=== PATIENT | female | born 1945 | race Caucasian/White ===

== ENCOUNTER 2020-12-04 10:19 | Emergency (ER) | payer MEDICARE, OTHER ==
[~2020-12-04] VITALS: Ht 167.6 cm; Wt 82.9 kg
[2020-12-04] MEDS ORDERED: SUCCINYLCHOLINE 200 MG/10 ML VIAL. ONE (10:33)
[2020-12-04] MEDS ORDERED: IV NORMAL SALINE 1,000ML 1,000 ML IV SCH (11:00)
--- NOTE | 2020-12-04 11:04 | PHYS DOC ---
Past History Past Medical History: Diabetes Adult General Chief Complaint Chief Complaint: ALTERED MENTAL STATUS HPI HPI Patient is a 75-year-old female who presents via EMS for altered mental status. 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 reported patient had not been feeling well preceding 48 hours. Reports patient had pump malfunction yesterday evening and when awaking today was extremely weak and lethargic. Initial report was that patient fell out of bed but after confirming history with , patient tried to get out of bed and rolled suffering a less than 2 foot fall to the ground hitting her head. There was no loss of consciousness but due to size of patient and mental status, had difficulty getting her back up and so he called EMS. On arrival to scene, patient was alert but not oriented to person place or time. Her airway was not protected, [id number] glucose was read as "high"and she was rushed to our ER for evaluation. Review of Systems Review of Systems ROS unobtainable due to mentation of the patient Current Medications Current Medications Current Medications Medications (Trade) Dose Ordered Sig/Lelia Start Time Stop Time Status Last Admin Dose Admin Succinylcholine Chloride (Anectine) 200 mg STK-MED ONCE 12/04/20 10:33 12/04/20 10:33 DC Physical Exam Physical Exam A: Nonverbal, airway is nonpatent nor protected B: Bilateral breath sounds present with decreased respirations C: 2+ carotid and femoral pulses b/l D: GCS 6 (E4, V1, M1). E: Patients clothing removed. External insulin pump removed from patient General: Minimally responsive, grossly dehydrated in appearance without any external deformities or signs of trauma Skin: Warm, dry. Normal for ethnicity. HEENT: Atraumatic. PERRLA. Dry mucous membranes. No facial deformity. Neck: Trachea midline. No palpable C-spine abnormalities Respiratory: Decreased work of breathing and rate. CTAB w/o w/r/r. No tachypnea. Cardiovascular: Regular rate and rhythm. Normal peripheral perfusion. No edema. Chest: B/l clavicles intact. No ecchymosis. No deformity. Abdomen: Soft. Non tender. No distension. : Normal external genitalia. Back: No midline T or L-spine TTP. No ecchymosis. Musculoskeletal: No swelling or deformity. Neuro: Alert but not oriented to person place or time, no focal neuro deficits, negative babinski bilaterally Psych: Unable to assess EKG EKG EKG ordered and interpreted by myself at 1134 hrs. as sinus rhythm at 83 bpm, prolonged QTC at 460 otherwise unremarkable intervals, left axis deviation, T wave inversions noted in leads aVR, no STEMI, no prior EKG to compare to Radiology/Procedures Radiology/Procedures PROCEDURE: PORTABLE CHEST 1V AP chest. HISTORY: Short of breath, intubated AP view was taken of the chest. There is an endotracheal tube in good position at the level aortic arch. Patient's taken a poor inspiration. Heart is normal in size. There is no pleural effusion. There are no confluent infiltrates. IMPRESSION: 1. Endotracheal tube appears in good position. 2. No acute infiltrates. Electronically signed by: Edwin Chowdary MD (12/04/2020 10:59 AM) [id number] ////////////////////////////////////////////// PROCEDURE: CT HEAD AND CERVICAL SPINE WO CT HEAD AND C-SPINE WO Date: 12/04/2020 11:11 AM Clinical Indication: unresponsive Comparison: None. Technique: 5 mm axial tomographic images were obtained of the head without contrast. These were viewed on brain and bone windows. Noncontrast CT of the cervical spine was performed. Sagittal and coronal reformats were performed and evaluated. One or more of the following dose reduction techniques were utilized: Automated exposure control (AEC), Adjustment of mA and/or kV according to patient size, Use of iterative reconstruction technique such as ASiR, CT scan done according to ALARA and image gently/image wisely HEAD FINDINGS: Mild generalized cerebral and cerebellar volume loss. Mild nonspecific periventricular hypoattenuation, most commonly seen with chronic small vessel ischemic disease. No intra- or extra-axial mass or fluid collection. No acute hemorrhage. The ventricles are normal in size, shape, and morphology. The downing-white matter junction is normal. The basilar cisterns are patent. The visualized paranasal sinuses are normal. The visualized portions of the orbits and globes are normal. The mastoid air cells are clear. No aggressive osseous lesion or fracture. CERVICAL SPINE FINDINGS: The cervical spine is normally aligned. No acute fracture. No aggressive lytic or blastic osseous lesions. Mild multilevel degenerative disc space height loss. Multilevel mild spinal canal stenosis secondary to disc protrusions and marginal osteophytes. Multilevel mild neuroforaminal narrowing secondary to uncovertebral arthrosis. Multilevel mild facet arthrosis. The thyroid gland is normal. No cervical lymphadenopathy. Bilateral carotid atherosclerosis. The visualized aerodigestive tract is normal. The visualized portions of the lungs are clear. IMPRESSION: 1. No acute intracranial process. 2. No acute cervical spine fracture. Electronically signed by: Oilver Orozco MD (12/04/2020 11:36 AM) [id number] /////////////////////////// PROCEDURE: CHEST AP ONLY XR CHEST 1V 1:14 PM CLINICAL INDICATIONS: Reason: RIGHT IJ CENTRAL LINE PLACEMENT COMPARISON: December 04, 2020 performed at 10:44 AM FINDINGS/ IMPRESSION: ET tube tip is located 4.5 cm above the level of jeff. Right IJ central line is in place and tip is seen within the upper superior vena cava. No pneumothorax or pleural effusion or acute lung infiltrate is seen. Electronically signed by: Anuel Taylor MD (12/04/2020 1:28 PM) [id number] Heart Score C/O Chest Pain: N/A Risk Factors: Risk Factors: DM, Current or recent (<one month) smoker, HTN, HLP, family history of CAD, obesity. Risk Scores: Risk Factors: DM, Current or recent (<one month) smoker, HTN, HLP, family history of CAD, obesity. Course & Med Decision Making Course & Med Decision Making Hypothermic, hypotensive and hypoxic patient on arrival with a non-protected airway IV access obtained, supplemental O2 via non-breather did not improve patient status so patient was emergently intubated without complication X2 peripheral IVs intact and aggressive fluid resuscitative ensued given presumed diagnosis of DKA vs HHS CT head and neck obtained for suspect fall but later told by she did not hit head and lowered self to groudn without LOC Rt IJ CVL obtained and IV Insulin drip started for dx DKA, patient actively rewarmed with blankets. ED workup concerning for DKA and hypothermia. Also concern for infection of unknown source at present Patient stabilized and decision made to transfer to [facility] icu. Hospitalist contacted and case discussed, Dr. Odom accepted patient under his care. at bedside and confirmed preceding HPI obtained by EMS. Updated on plan of care for transfer and admission and he was amenable. All questions and conc erns addressed prior to ED transport to [facility] for admission This patient required critical care. Due to the fact that the patient required a significant amount of one on one physician patient contact time, ordering and review of studies, arranging urgent treatment with development of a management plan, evaluation of patients response to treatment with frequent reassessments, and discussions with other providers this patient required critical care time of 72 mins. Critical care time was indicated due to the inherent instability and/or potential for instability in this patient. The critical care time that is allocated to this patient is above and beyond any time spent on any other billable procedures performed on this patient. Dragon Disclaimer Dragon Disclaimer This electronic medical record was generated, in whole or in part, using a voice recognition dictation system. Central Line Central Line : Central Line Lumen: triple Central Line Procedure: sterile drapes applied, sterile dressing applied Central Line Postion: internal jugular (R) Anesthesia: Lidocaine cc's of anesthesia: 3 Complications: none Central Line Post Position: sutured, good blood return, position confirmed w/ CXR Progress verbal consent obtained from after discussing risks vs benefits at length Intubation Intubation : Intubation Method: orotracheal Tube Size (cm): 7.5 Medications: Succinylcholine (with etomidate (see nursing notes)) Breath Sounds after Intubation: equal Intubation Complications: no complications Post Intubation Xray: Yes Progress 1st attempt success using mac 3 blade. Emergent in nature, nobody available for consent, med necessity Departure Departure: Impression: Primary Impression: DKA (diabetic ketoacidosis) Additional Impressions: Hypothermia Acute respiratory failure with hypoxia Disposition: 02 DC/TRF OTHER SHORT TERM HOS ([facility] Admitting Physician: Tamiko Odom Condition: GUARDED Referrals: COLLIN COVINGTON MD (PCP) Problem Qualifiers JUNIE JONES DO Dec 04, 2020 11:04
[2020-12-04] MEDS ORDERED: IV NORMAL SALINE 1,000ML 1,000 ML IV ONE (11:15)
[2020-12-04 11:18] LABS: BASO # 0.2 x10^3/uL (0.0-0.2); BASO % 1 % (0-3); EOS % 0 % (0-3); HEMATOCRIT 56.8 % (36.0-47.0); HEMOGLOBIN 16.5 g/dL (12.0-15.5); LYMPH # 0.9 x10^3/uL (1.0-4.8); LYMPH % 4 % (24-48); MEAN CORPUSCULAR HEMOGLOBIN 31 pg (25-35); MEAN CORPUSCULAR HGB CONC 29 g/dL (31-37); MEAN CORPUSCULAR VOLUME 106 fL (79-100); MONO # 1.4 x10^3/uL (0.0-1.1); MONO % 7 % (0-9); NEUT # 18.3 x10^3uL (1.8-7.7); NEUT % 88 % (31-73); PLATELET COUNT 453 x10^3/uL (140-400); RED BLOOD COUNT 5.35 x10^6/uL (3.50-5.40); RED CELL DISTRIBUTION WIDTH 16.1 % (11.5-14.5); WHITE BLOOD COUNT 20.9 x10^3/uL (4.0-11.0)
[2020-12-04 11:23] LABS: SALIC 5.9 mg/dL (2.8-20.0)
[2020-12-04 11:24] LABS: ACETAMIN < 2 mcg/mL (10-30)
[2020-12-04] MEDS ORDERED: PROPOFOL 100 ML IV PRN (11:30)
[2020-12-04] MEDS ORDERED: INSULIN REGULAR 100 UNIT/ML 3ML VIAL. IV ONE (11:30)
[2020-12-04 11:33] LABS: ALBUMIN 3.6 g/dL (3.4-5.0); CALCIUM 10.3 mg/dL (8.5-10.1); CREATININE 2.8 mg/dL (0.6-1.0); GFR 16.5; POTASSIUM 5.7 mmol/L (3.5-5.1); TOTAL BILIRUBIN 0.6 mg/dL (0.2-1.0); TOTAL PROTEIN 7.2 g/dL (6.4-8.2)
--- NOTE | 2020-12-04 11:38 | RAD ---
CT HEAD AND C-SPINE WO Date: 12/04/2020 11:11 AM Clinical Indication: unresponsive Comparison: None. Technique: 5 mm axial tomographic images were obtained of the head without contrast. These were view ed on brain and bone windows. Noncontrast CT of the cervical spine was performed. Sagittal and monahan l reformats were performed and evaluated. One or more of the following dose reduction techniques were utilized: Automated exposure control (AEC), Adjustment of mA and/or kV according to patient size, Us e of iterative reconstruction technique such as ASiR, CT scan done according to ALARA and image gentl y/image wisely HEAD FINDINGS: Mild generalized cerebral and cerebellar volume loss. Mild nonspecific periventricular hypoattenuatio n, most commonly seen with chronic small vessel ischemic disease. No intra- or extra-axial mass or fluid collection. No acute hemorrhage. The ventricles are normal in size, shape, and morphology. The downing-white matter junction is normal. The basilar cisterns are paten t. The visualized paranasal sinuses are normal. The visualized portions of the orbits and globes are no rmal. The mastoid air cells are clear. No aggressive osseous lesion or fracture. CERVICAL SPINE FINDINGS: The cervical spine is normally aligned. No acute fracture. No aggressive lytic or blastic osseous les ions. Mild multilevel degenerative disc space height loss. Multilevel mild spinal canal stenosis secondary to disc protrusions and marginal osteophytes. Multilevel mild neuroforaminal narrowing secondary to u ncovertebral arthrosis. Multilevel mild facet arthrosis. The thyroid gland is normal. No cervical lymphadenopathy. Bilateral carotid atherosclerosis. The visu alized aerodigestive tract is normal. The visualized portions of the lungs are clear. IMPRESSION: 1. No acute intracranial process. 2. No acute cervical spine fracture. Electronically signed by: Oliver Orozco MD (12/04/2020 11:36 AM) [id number]
[2020-12-04 11:52] LABS: BARBITURATES NEG (NEG); BENZODIAZEPINES NEG (NEG); CANNABINOIDS NEG (NEG); COCAINE NEG (NEG); METHADONE NEG (NEG); OPIATES NEG (NEG); PHENCYCLIDINE NEG (NEG)
[2020-12-04 11:54] LABS: AMPHETAMINE/METHAMPHETAMINE NEG (NEG)
[2020-12-04] MEDS ORDERED: INSULIN REGULAR VIAL 100 UNIT in IV NORMAL SALINE 100ML 100 ML IV PRN (12:00)
[2020-12-04] MEDS ORDERED: DEXTROSE 50% 25 GM / 50ML DISP.SYRIN. IV PRN (12:00)
[2020-12-04] MEDS ORDERED: IV 1/2 NORMAL SALINE 1,000 ML IV ONE (12:00)
[2020-12-04 12:04] LABS: AMORPHOUS SEDIMENT,UR PRESENT /HPF; BACTERIA,URINE 0 /HPF (0-FEW); BILIRUBIN,URINE NEG (NEG); CLARITY,URINE HAZY; COLOR,URINE YELLOW; GLUCOSE,URINE >=1000 mg/dL (NEG); HYALINE CASTS, URINE FEW /HPF; NITRITE,URINE NEG (NEG); RBC,URINE OCC /HPF (0-2); SQUAMOUS EPITHELIAL CELL,UR MOD /LPF; UROBILINOGEN,URINE 0.2 mg/dL (0.2 mg/dL); WBC,URINE OCC /HPF (0-4); YEAST,URINE PRESENT /HPF
[2020-12-04] MEDS ORDERED: IV NORMAL SALINE 100ML 100 ML ONE (12:16)
[2020-12-04 12:19] LABS: BGAS PH 6.97 (7.35-7.45)
--- NOTE | 2020-12-04 13:31 | RAD ---
XR CHEST 1V 1:14 PM CLINICAL INDICATIONS: Reason: RIGHT IJ CENTRAL LINE PLACEMENT COMPARISON: December 04, 2020 performed at 10:44 AM FINDINGS/ IMPRESSION: ET tube tip is located 4.5 cm above the level of jeff. Right IJ central line is in plac e and tip is seen within the upper superior vena cava. No pneumothorax or pleural effusion or acute l ember infiltrate is seen. Electronically signed by: Anuel Taylor MD (12/04/2020 1:28 PM) [id number]
[2020-12-04 13:45] VITALS: BP 138/91
[2020-12-04 14:03] LABS: % BANDS 4 % (0-9); % EOS 1 % (0-5); % LYMPHS 4 % (24-48); % METAS 1 % (0-0); % MONOS 5 % (0-10); % MYELOS 2 % (0-0); % SEGS 83 % (35-66)
[2020-12-04 14:04] LABS: PLT ESTIMATE ADEQUATE (ADEQUATE)
--- NOTE | 2020-12-04 14:55 | EKG ---
[facility] ED 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
[2020-12-04] MEDS ORDERED: ETOMIDATE 40 MG/20 ML VIAL. ONE (16:00)
== END 2020-12-04 14:03 | disposition short-term general hospital (02) ==
LOC: ER 10:19
DX: T68.XXXA Hypothermia, initial encounter (principal); J96.01 Acute respiratory failure with hypoxia; E11.10 Type 2 diabetes mellitus with ketoacidosis without coma; W06.XXXA Fall from bed, initial encounter; Y93.89 Activity, other specified; Y92.89 Other specified places as the place of occurrence of the external cause; Y99.8 Other external cause status
CPT/HCPCS: 31500; 36415; 36556; 36600; 51702; 70450; 71045; 72125; 80053; 80307; 80329; 81001; 82010; 82550; 82803; 83605; 84484; 85007; 85025; 87040; 93005; 96365; 96366; 96376; 99291; J1815; J2704; J7030; 94002; G0480

== ENCOUNTER 2021-01-28 19:30 | Emergency (ER) | payer MEDICARE, OTHER ==
[~2021-01-28] VITALS: Ht 167.6 cm; Wt 86.4 kg
[2021-01-28] MEDS ORDERED: RACEPINEPHRINE 2.25% 0.5 ML NEBU. ONE (19:46)
--- NOTE | 2021-01-28 19:57 | RAD ---
Exam: Chest one view INDICATION: Shortness of breath TECHNIQUE: Frontal view of the chest Comparisons: 12/04/2020 FINDINGS: The cardiomediastinal silhouette and pulmonary vessels are within normal limits. The lung and pleural spaces are clear. IMPRESSION: No acute cardiopulmonary process. Electronically signed by: Daiana Joseph MD (01/28/2021 7:55 PM) ALVIN
[2021-01-28] MEDS ORDERED: IPRATRPIUM/ALBUTEROL 0.5/2.5MG 3 ML NEBU. NEB ONE (20:00)
[2021-01-28] MEDS ORDERED: diphenhydrAMINE 50 MG/ML VIAL IVP ONE (20:00)
[2021-01-28] MEDS ORDERED: methylPREDNISolone SOD SUCC PF 125 MG/2 ML VIAL. IV ONE (20:00)
[2021-01-28] MEDS ORDERED: ONDANSETRON PF 4 MG/2 ML VIAL. IVP ONE (20:00)
--- NOTE | 2021-01-28 20:10 | PHYS DOC ---
Past History Past Medical History: Diabetes Past Surgical History: Cancer Surgery, Cholecystectomy Alcohol Use: None General Adult EDM: Chief Complaint: SHORTNESS OF BREATH HPI: HPI: 75-year-old female presents with shortness of breath. The patient states that she was sitting on her couch not doing much of anything when she started to feel short of breath. She started to have coughing that increased in intensity. She feels like she is wheezing and having a difficult time breathing. She has no idea why this is occurring. She has no history of asthma or COPD. She was not eating or drinking anything. She denies fever or chills. Denies chest pain. Review of Systems: Review of Systems: Constitutional: Denies fever or chills Eyes: Denies change in visual acuity HENT: Denies nasal congestion or sore throat Respiratory: Cough with shortness of breath Cardiovascular: Denies chest pain or edema GI: Denies abdominal pain, nausea, vomiting, bloody stools or diarrhea : Denies dysuria Musculoskeletal: Denies back pain or joint pain Integument: Denies rash Neurologic: Denies headache, focal weakness or sensory changes Endocrine: Denies polyuria or polydipsia Lymphatic: Denies swollen glands Psychiatric: Denies depression or anxiety Current Medications: Current Meds: Current Medications Medications (Trade) Dose Ordered Sig/Lelia Start Time Stop Time Status Last Admin Dose Admin Albuterol/ Ipratropium (Duoneb) 3 ml 1X ONCE 01/28/21 20:00 01/28/21 20:01 DC Diphenhydramine HCl (Benadryl) 25 mg 1X ONCE 01/28/21 20:00 01/28/21 20:01 DC Epinephrine (S2 Racepinephrine) 0.5 ml STK-MED ONCE 01/28/21 19:46 01/28/21 19:47 DC Methylprednisolone Sodium Succinate (SOLU-Medrol 125MG VIAL) 125 mg 1X ONCE 01/28/21 20:00 01/28/21 20:01 DC Ondansetron HCl (Zofran) 4 mg 1X ONCE 01/28/21 20:00 01/28/21 20:01 DC Allergies: Allergies: Allergies Coded Allergies Type Severity Reaction Last Updated Verified No Known Drug Allergies 12/04/20 No Physical Exam: PE: Constitutional: Well developed, well nourished, moderate acute distress. [] HENT: Normocephalic, atraumatic, bilateral external ears normal, oropharynx moist, no oral exudates, nose normal. [] Eyes: PERRLA, EOMI, conjunctiva normal, no discharge. [] Neck: Normal range of motion, no tenderness, supple, no stridor. [] Cardiovascular: Heart rate 130, regular rhythm, no murmur [] Lungs & Thorax: Bilateral breath sounds with diffuse expiratory wheezing. [] Abdomen: Bowel sounds normal, soft, no tenderness, no masses, no pulsatile masses. [] Skin: Warm, dry, no erythema, no rash. [] Back: No tenderness, no CVA tenderness. [] Extremities: No tenderness, no cyanosis, no clubbing, ROM intact, no edema. [] Neurologic: Alert and oriented X 3, normal motor function, normal sensory function, no focal deficits noted. [] Psychologic: Affect as expected, judgement normal, mood concerned. [] EKG: EKG: Sinus tachycardia, rate 117, leftward axis, no ST elevation or depression. [] Radiology/Procedures: Radiology/Procedures: [] Impressions: Exam: CT neck without contrast INDICATION: Shortness of breath, restricted airway TECHNIQUE: Sequential axial images through the neck obtained without IV contra st. Sagittal and coronal reformatted images were reconstructed from the axial data and reviewed. Exposure: One or more of the following in the visualized dose reduction techniques were utilized for this examination: 1. Automated exposure control 2. Adjustment of the MA and/or KV according to patient size 3. Use of iterative of reconstructive technique Comparisons: 12/04/2020 FINDINGS: Visualized intracranial structures are unremarkable. Globes and orbital contents are normal. Nasopharynx, oropharynx, are unremarkable. At the hypopharynx at the level of the focal cords there is a central filling defect. The more distal larynx is unremarkable. Thyroid is not visualized. No enlarged cervical lymph nodes. Salivary glands are unremarkable. There is a 8 mm nodule in the left upper lobe. No suspicious osseous lesions or acute fractures IMPRESSION: 1. Masslike area in the hypopharynx at the level of the vocal cords measuring approximately 1.4 cm. Differential considerations include mucous plugging versus neoplasm. Direct visualization is recommended. 2. An 8 mm nodule in the left upper lobe. Dedicated chest CT is recommended to better assess. Electronically signed by: Daiana Dixon MD (01/28/2021 10:27 PM) [facility] DICTATED AND SIGNED BY: DAIANA DIXON MD DATE: 01/28/212218 CC: COLIN BROTHERS DO; COLLIN COVINGTON MD ~MTH0 0 Exam: Chest one view INDICATION: Shortness of breath TECHNIQUE: Frontal view of the chest Comparisons: 12/04/2020 FINDINGS: The cardiomediastinal silhouette and pulmonary vessels are within normal limits. The lung and pleural spaces are clear. IMPRESSION: No acute cardiopulmonary process. Electronically signed by: Daiana Dixon MD (01/28/2021 7:55 PM) [facility] DICTATED AND SIGNED BY: DAIANA DIXON MD DATE: 01/28/211953 CC: COLIN BROTHERS DO; COLLIN COVINGTON MD ~MTH0 0 Heart Score: C/O Chest Pain: No Risk Factors: Risk Factors: DM, Current or recent (<one month) smoker, HTN, HLP, family history of CAD, obesity. Risk Scores: Score 0 - 3: 2.5% MACE over next 6 weeks - Discharge Home Score 4 - 6: 20.3% MACE over next 6 weeks - Admit for Clinical Observation Score 7 - 10: 72.7% MACE over next 6 weeks - Early Invasive Strategies Course & Med Decision Making: Course & Med Decision Making Pertinent Labs and Imaging studies reviewed. (See chart for details) We have given the patient a DuoNeb treatment followed by racemic epinephrine. Her O2 saturation has been above 95%. Patient was also given 125 of Solu-Medrol and 25 of Benadryl IV. I have not currently given her any epinephrine. Her chest x-ray is negative for acute findings. Her CT of the neck shows a 1.4 cm masslike lesion which could be mucous plugging or neoplasm. We do not have ENT at this hospital or [facility]. I will ask the patient which hospital system she would like me to contact. She has requested [facility]. I spoke with Dr. Nails, ENT and he will be consulted on the patient. He advised admission to the hospitalist. Spoke with the hospitalist, and she has accepted the patient for transfer and admission. The patient will go by ambulance. 33 minutes of critical care time was spent on this patient exclusive of other billable procedures. [] Dragon Disclaimer: Dragon Disclaimer: This electronic medical record was generated, in whole or in part, using a voice recognition dictation system. Departure Departure: Impression: Primary Impression: Respiratory distress Additional Impression: Pharyngeal mass Disposition: 02 SHORT TERM HOSPITAL Condition: GUARDED Referrals: COLLIN COVINGTON MD (PCP) COLIN BROTHERS DO January 28, 2021 20:10
[2021-01-28 20:43] LABS: BASO # 0.1 x10^3/uL (0.0-0.2); BASO % 1 % (0-3); EOS # 0.4 x10^3/uL (0.0-0.7); EOS % 3 % (0-3); HEMATOCRIT 42.3 % (36.0-47.0); HEMOGLOBIN 13.8 g/dL (12.0-15.5); LYMPH # 3.5 x10^3/uL (1.0-4.8); LYMPH % 25 % (24-48); MEAN CORPUSCULAR HEMOGLOBIN 31 pg (25-35); MEAN CORPUSCULAR HGB CONC 33 g/dL (31-37); MEAN CORPUSCULAR VOLUME 95 fL (79-100); MONO # 1.2 x10^3/uL (0.0-1.1); MONO % 8 % (0-9); NEUT # 8.7 x10^3uL (1.8-7.7); NEUT % 63 % (31-73); PLATELET COUNT 359 x10^3/uL (140-400); RED BLOOD COUNT 4.46 x10^6/uL (3.50-5.40); RED CELL DISTRIBUTION WIDTH 15.1 % (11.5-14.5); WHITE BLOOD COUNT 13.8 x10^3/uL (4.0-11.0)
[2021-01-28 21:11] LABS: CALCIUM 8.8 mg/dL (8.5-10.1); GFR 54.2; POTASSIUM 3.3 mmol/L (3.5-5.1)
[2021-01-28 21:17] LABS: ALBUMIN 2.9 g/dL (3.4-5.0); ALBUMIN/GLOBULIN RATIO 0.9 (1.0-1.7); TOTAL BILIRUBIN 0.2 mg/dL (0.2-1.0); TOTAL PROTEIN 6.1 g/dL (6.4-8.2)
[2021-01-28 21:24] LABS: BILIRUBIN,URINE NEG (NEG); CLARITY,URINE HAZY; COLOR,URINE YELLOW; GLUCOSE,URINE >=1000 mg/dL (NEG); NITRITE,URINE NEG (NEG); UROBILINOGEN,URINE 0.2 mg/dL (0.2 mg/dL)
[2021-01-28 21:26] LABS: BACTERIA,URINE 0 /HPF (0-FEW); RBC,URINE 0 /HPF (0-2); SQUAMOUS EPITHELIAL CELL,UR FEW /LPF; WBC,URINE 0 /HPF (0-4)
--- NOTE | 2021-01-28 22:29 | RAD ---
Exam: CT neck without contrast INDICATION: Shortness of breath, restricted airway TECHNIQUE: Sequential axial images through the neck obtained without IV contrast. Sagittal and monahan l reformatted images were reconstructed from the axial data and reviewed. Exposure: One or more of the following in the visualized dose reduction techniques were utilized for this examination: 1. Automated exposure control 2. Adjustment of the MA and/or KV according to patient size 3. Use of iterative of reconstructive technique Comparisons: 12/04/2020 FINDINGS: Visualized intracranial structures are unremarkable. Globes and orbital contents are normal. Nasopharynx, oropharynx, are unremarkable. At the hypopharynx at the level of the focal cords there i s a central filling defect. The more distal larynx is unremarkable. Thyroid is not visualized. No enlarged cervical lymph nodes. Salivary glands are unremarkable. There is a 8 mm nodule in the left upper lobe. No suspicious osseous lesions or acute fractures IMPRESSION: 1. Masslike area in the hypopharynx at the level of the vocal cords measuring approximately 1.4 cm. Differential considerations include mucous plugging versus neoplasm. Direct visualization is recommen ded. 2. An 8 mm nodule in the left upper lobe. Dedicated chest CT is recommended to better assess. Electronically signed by: Daiana Joseph MD (01/28/2021 10:27 PM) [facility]
[2021-01-28 23:38] VITALS: BP 107/53
--- NOTE | 2021-01-29 00:03 | EKG ---
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
== END 2021-01-29 01:16 | disposition short-term general hospital (02) ==
LOC: ER 19:30
DX: R06.03 Acute respiratory distress (principal); J39.2 Other diseases of pharynx; E11.9 Type 2 diabetes mellitus without complications
CPT/HCPCS: 36415; 70490; 71045; 80053; 81001; 85025; 93005; 94640; 96374; 96375; 99285; J1200; J2405; J2930

== ENCOUNTER → 2021-04-25 | Outpatient (CLI) | payer MEDICARE, OTHER ==
--- NOTE | 2021-04-25 09:46 | RAD ---
Site ID: [id number] EXAMINATION: CT HEAD/BRAIN WO. TECHNIQUE: Noncontrast axial images of the brain were obtained with coronal and sagittal reconstructi ons. One or more of the following radiation dose reduction techniques was used: automated exposure control , adjustment of mA and/or KV according to patient size, and/or utilization of iterative reconstructio n technique. HISTORY: 75 years Female Reason: MEMORY LOSS / FINDINGS: There is no intracranial hemorrhage, edema or mass effect. The brain parenchyma demonstrat es periventricular and deep white matter hypodensities compatible with chronic microvascular ischemic changes. Size of the ventricles is appropriate. The visualized portions of the orbits and paranasal sinuses appear unremarkable. IMPRESSION: No acute process. Electronically signed by: Cristino Fernandez MD (04/25/2021 9:44 AM) [id number]
== END ==
LOC: CT 09:18
PROVIDERS: ATTEND Psychiatry & Neurology Neurology
DX: R41.3 Other amnesia (principal)
CPT/HCPCS: 70450

== ENCOUNTER 2021-04-27 12:07 | Emergency (ER) | payer MEDICARE, OTHER ==
[~2021-04-27] VITALS: Ht 157.5 cm; Wt 89.1 kg
--- NOTE | 2021-04-27 12:26 | PHYS DOC ---
Past History Past Medical History: Diabetes Past Surgical History: Cancer Surgery, Cholecystectomy Alcohol Use: None General Adult EDM: Chief Complaint: HYPERGLYCEMIA HPI: HPI: Patient is a 75 year old female with history of diabetes with insulin pump who presents with several days of hyperglycemia. Has been reading the [id number] range for the past 2 days. Has an insulin pump that was recalibrated at her web designer office. Reportedly had an increase in basal insulin rates. According to the this has been functioning fine at home, although it is constantly beeping saying that the tubing is blocked here in the emergency department. Patient has had some mild nausea with this, but otherwise no symptoms. Denies any pain including chest, abdominal pain. No skin rashes/swelling. No dysuria, urgency, frequency. Review of Systems: Review of Systems: Constitutional: Denies fever or chills Eyes: Denies change in visual acuity HENT: Denies nasal congestion or sore throat Respiratory: Denies cough or shortness of breath Cardiovascular: Denies chest pain or edema GI: + Nausea. Denies abdominal pain, vomiting, bloody stools or diarrhea : Denies dysuria Musculoskeletal: Denies back pain or joint pain Integument: Denies rash Neurologic: Denies headache, focal weakness or sensory changes Endocrine: + High blood glucose. Denies polyuria or polydipsia Lymphatic: Denies swollen glands Psychiatric: Denies depression or anxiety Allergies: Allergies: Allergies Coded Allergies Type Severity Reaction Last Updated Verified No Known Drug Allergies 12/04/20 No Physical Exam: PE: Constitutional: Well developed, well nourished, no acute distress, non-toxic appearance. [] HENT: Normocephalic, atraumatic, bilateral external ears normal, oropharynx moist, no oral exudates, nose normal. [] Eyes: PERRLA, EOMI, conjunctiva normal, no discharge. [] Neck: Normal range of motion, no tenderness, supple, no stridor. [] Cardiovascular:Heart rate regular rhythm, no murmur [] Lungs & Thorax: Bilateral breath sounds clear to auscultation [] Abdomen: Bowel sounds normal, soft, no tenderness, no masses, no pulsatile masses. [] Skin: Warm, dry, no erythema, no rash. [] Back: No tenderness, no CVA tenderness. [] Extremities: No tenderness, no cyanosis, no clubbing, ROM intact, no edema. [] Neurologic: Alert and oriented X 3, somewhat poor long-term memory. Normal motor function, normal sensory function, no focal deficits noted. [] Psychologic: Affect normal, judgement normal, mood normal. [] EKG: EKG: [] Radiology/Procedures: Radiology/Procedures: [] Heart Score: C/O Chest Pain: No Risk Factors: Risk Factors: DM, Current or recent (<one month) smoker, HTN, HLP, family history of CAD, obesity. Risk Scores: Score 0 - 3: 2.5% MACE over next 6 weeks - Discharge Home Score 4 - 6: 20.3% MACE over next 6 weeks - Admit for Clinical Observation Score 7 - 10: 72.7% MACE over next 6 weeks - Early Invasive Strategies Course & Med Decision Making: Course & Med Decision Making Pertinent Labs and Imaging studies reviewed. (See chart for details) Patient is a 75-year-old female who presents with several days of hyperglycemia. She has an insulin pump, that was recently inspected by her web designer office (Dr. Escobar). Blood glucose reportedly 500-600 range. On arrival is afebrile and hemodynamically stable. Does not appear to be hyperventilating, making DKA less likely. Will check blood work for signs of DKA, HHS, or other resultant electrolyte abnormalities. We will give 500 mL bolus of insulin. 1226 No evidence of DKA or HHS on labs. No significant electrolyte abnormalities. Initial blood glucose 495. Down to 407 after IV fluids. Discussed the case with Dr. Escobar's office, the patient's web designer, who is concerned that the insulin pump may not be operating correctly. They recommend transitioning back to syringe basal/bolus plan. They are sending supplies for a plan of 75 units Lantus daily and 20 units of NovoLog with meals. Instructions to check blood sugars before meals plus at bedtime. Discussed this with the patient's who understands the plan. They have scheduled them for a follow up appt with Dr. Escobar's office as well. [id number] Malou Disclaimer: Malou Disclaimer: This electronic medical record was generated, in whole or in part, using a voice recognition dictation system. Departure Departure: Impression: Primary Impression: Hyperglycemia Referrals: COLLIN COVINGTON MD (PCP) Additional Instructions: Dr. Escobar's office is concerned that your insulin pump is not functioning properly. They would like to see you for a follow-up appointment. This was scheduled by their office. Please call them to get the details for date and time. In the meantime they are sending insulin supplies to [facility] pharmacy. Instructions: Lantus 25 units, once daily Novolog 20 units, with meals Check blood sugars before meals, and before bed. Do not administer novolog if her blood glucose is less than 180. Please call Dr. Escobar's office with any questions. EZRA DAMON MD Apr 27, 2021 12:26
[2021-04-27] MEDS ORDERED: IV NORMAL SALINE 500ML 500 ML IV ONE (12:30)
[2021-04-27 12:46] LABS: BASO # 0.1 x10^3/uL (0.0-0.2); BASO % 1 % (0-3); EOS # 0.2 x10^3/uL (0.0-0.7); EOS % 2 % (0-3); HEMATOCRIT 45.6 % (36.0-47.0); HEMOGLOBIN 15.2 g/dL (12.0-15.5); LYMPH # 1.5 x10^3/uL (1.0-4.8); LYMPH % 21 % (24-48); MEAN CORPUSCULAR HEMOGLOBIN 30 pg (25-35); MEAN CORPUSCULAR HGB CONC 33 g/dL (31-37); MEAN CORPUSCULAR VOLUME 91 fL (79-100); MONO # 0.5 x10^3/uL (0.0-1.1); MONO % 6 % (0-9); NEUT # 5.2 x10^3uL (1.8-7.7); NEUT % 70 % (31-73); PLATELET COUNT 309 x10^3/uL (140-400); RED BLOOD COUNT 4.98 x10^6/uL (3.50-5.40); RED CELL DISTRIBUTION WIDTH 15.5 % (11.5-14.5); WHITE BLOOD COUNT 7.4 x10^3/uL (4.0-11.0)
[2021-04-27 12:58] LABS: CALCIUM 8.8 mg/dL (8.5-10.1); GFR 54.2; POTASSIUM 3.8 mmol/L (3.5-5.1)
[2021-04-27 13:04] LABS: ALBUMIN 3.4 g/dL (3.4-5.0); TOTAL BILIRUBIN 0.5 mg/dL (0.2-1.0); TOTAL PROTEIN 6.8 g/dL (6.4-8.2)
[2021-04-27 13:42] LABS: BILIRUBIN,URINE NEG (NEG); CLARITY,URINE CLEAR; COLOR,URINE STRAW; GLUCOSE,URINE >=1000 mg/dL (NEG); NITRITE,URINE NEG (NEG); UROBILINOGEN,URINE 0.2 mg/dL (0.2 mg/dL)
[2021-04-27 13:43] LABS: BACTERIA,URINE 0 /HPF (0-FEW); RBC,URINE 0 /HPF (0-2); SQUAMOUS EPITHELIAL CELL,UR FEW /LPF; WBC,URINE 0 /HPF (0-4)
[2021-04-27 16:35] VITALS: BP 138/65
== END 2021-04-27 16:36 | disposition home or self-care (01) ==
LOC: ER 12:07
DX: E11.65 Type 2 diabetes mellitus with hyperglycemia (principal); Z90.49 Acquired absence of other specified parts of digestive tract
CPT/HCPCS: 36415; 80053; 81001; 82010; 82947; 83930; 85025; 96360; 99285; J7040

== ENCOUNTER 2021-06-14 05:36 | Emergency (ER) | payer MEDICARE, OTHER ==
[~2021-06-14] VITALS: Ht 157.5 cm; Wt 92.7 kg
[2021-06-14 05:42] VITALS: BP 146/95
--- NOTE | 2021-06-14 05:48 | PHYS DOC ---
Past History Past Medical History: Diabetes (JUAN CARLOS SHAH MD) Past Surgical History: Cancer Surgery, Cholecystectomy (JUAN CARLOS SHAH MD) Alcohol Use: None (JUAN CARLOS SHAH MD) Adult General HPI HPI Patient is a 75-year-old female with a past medical history significant for insulin-dependent diabetes who presents to the emergency department with a chief complaint of shortness of breath over the last couple of hours. Denies any history of smoking, asthma or COPD. Denies any recent traumas, travels, illnesses, fevers, chest pain, abdominal pain, nausea, vomiting, dysuria, hematuria, blood in the stool or diarrhea. Denies any known ill contacts. States she has been Covid vaccinated. (JUAN CARLOS SHAH MD) Review of Systems Review of Systems Review of systems otherwise unremarkable except noted in HPI (JUAN CARLOS SHAH MD) Allergies Allergies Allergies Coded Allergies Type Severity Reaction Last Updated Verified No Known Drug Allergies 12/04/20 No (JUAN CARLOS SHAH MD) Physical Exam Physical Exam Constitutional: Well developed, well nourished, no acute distress, non-toxic appearance. [] HENT: Normocephalic, atraumatic, bilateral external ears normal, oropharynx moist, no oral exudates, nose normal. [] Eyes: conjunctiva normal, no discharge. [] Neck: Normal range of motion, no tenderness, supple, no stridor. [] Cardiovascular:Heart rate regular rhythm, no murmur [] Lungs & Thorax: Bilateral breath sounds with very mild bilateral rhonchi, but good chest expansion, not tachypneic and not hypoxic Abdomen: soft, no tenderness, no masses, no pulsatile masses. [] Skin: Warm, dry, no erythema, no rash. [] Back: no CVA tenderness. [] Extremities: No tenderness, ROM intact, no edema. [] Neurologic: Alert and oriented X 3, no focal deficits noted. [] Psychologic: Affect normal, judgement normal, mood normal. [] (JUAN CARLOS SHAH MD) EKG EKG [] (JUAN CARLOS SHAH MD) Radiology/Procedures Radiology/Procedures [] (JUAN CARLOS SHAH MD) Radiology/Procedures [address] [address] IMAGING REPORT Signed PATIENT: LONNY SEGURA ACCOUNT: [id number] : 1945 LOCATION: ER AGE: 75 SEX: F EXAM STATUS: REG ER ORD. PHYSICIAN: JUAN CARLOS SHAH MD REASON: SOB PROCEDURE: CT CHEST WO CONTRAST EXAM: CT Chest without IV contrast CLINICAL HISTORY: Shortness of breath COMPARISON: None. TECHNIQUE: CT of the chest without intravenous contrast. Axial, coronal and sagittal reformatted images were generated. ---PQRS compliance statement - One or more of the following individualized dose reduction techniques were utilized for this study: 1. Automated exposure control 2. Adjustment of the mA and/or kV according to patient size 3. Use of iterative reconstruction technique--- FINDINGS: Lack of intravenous contrast limits evaluation of solid organs, vasculature, and lymph nodes. Chest: No axillary lymphadenopathy. No mediastinal or hilar lymphadenopathy within the constraints of this noncontrast examination. Aortic calcifications are seen. Trace pericardial fluid is likely physiologic. The heart is not enlarged. No pleural effusion. No pneumothorax. A 5 mm left lower lobe nodule (series 2 image 42) is seen. 7 mm left upper lobe lung nodule (series 2 image 27). A 7 x 8 mm right middle lobe lung nodule (series 2 image 57) is seen. Additional less than 6 mm right lung nodules are also seen bilaterally. Patchy airspace opacities, solid and groundglass, medial right lower lobe, left lower lobe and lingula likely atelectasis or developing consolidative process. Visualized Upper abdomen: Multiple renal cysts seen. Moderate colonic stool content is seen is partially profiled. Bones: No aggressive osseous lesion is seen. IMPRESSION: 1. Patchy groundglass and solid airspace opacities in the medial right lower lobe, left lower lobe and lingula may represent developing consolidative process. Atelectasis can also have this appearance. 2. Bilateral lung nodules measuring up to 7 mm. Per Fleischner Society guidelines for incidentally found multiple solid nodules measuring 6-8 mm, initial CT follow-up is recommended in 3-6 months. Additional follow-up can be considered in 18-24 month based on risk factors. Electronically signed by: Lawrence Mohamud MD (06/14/2021 7:13 AM) [facility] DICTATED AND SIGNED BY: LAWRENCE MOHAMUD MD DATE: 06/14/21 0703 CC: JUAN CARLOS SHAH MD; COLLIN COVINGTON MD ~MTH0 0 (ANNETTE CHATMAN MD) Heart Score C/O Chest Pain: No Risk Factors: Risk Factors: DM, Current or recent (<one month) smoker, HTN, HLP, family history of CAD, obesity. Risk Scores: Risk Factors: DM, Current or recent (<one month) smoker, HTN, HLP, family history of CAD, obesity. (JUAN CARLOS SHAH MD) C/O Chest Pain: N/A (ANNETTE CHATMAN MD) Course & Med Decision Making Course & Med Decision Making Patient is a 75-year-old female presents emergency department with a chief complaint of shortness of breath over the last couple of hours Vital signs not concerning. Physical exam noted above. Patient placed on the monitor with IV access established. EKG noted above in without STEMI. The rest of patient's evaluation, treatment and disposition handed off to day team. [] (JUAN CARLOS SHAH MD) Dragon Disclaimer Dragon Disclaimer This electronic medical record was generated, in whole or in part, using a voice recognition dictation system. (JUAN CARLOS SHAH MD) Departure Departure: Impression: Primary Impression: Shortness of breath Additional Impression: Atypical pneumonia Disposition: HOME / SELF CARE / HOMELESS Condition: IMPROVED Referrals: COLLIN COVINGTON MD (PCP) Patient Instructions: Pneumonia, Adult Scripts Amoxicillin/Potassium Clav (AUGMENTIN 875-125 TABLET) 1 Each Tablet 1 TAB PO BID for antibiotic for 5 Days, #10 TAB 0 Refills Prov: ANNETTE CHATMAN MD 06/14/21 Problem Qualifiers JUAN CARLOS SHAH MD Jun 14, 2021 05:48 ANNETTE CHATMAN MD Jun 14, 2021 07:25
[2021-06-14 06:20] LABS: BASO % 0 % (0-3); EOS # 0.2 x10^3/uL (0.0-0.7); EOS % 3 % (0-3); HEMATOCRIT 45.9 % (36.0-47.0); HEMOGLOBIN 15.3 g/dL (12.0-15.5); LYMPH # 2.1 x10^3/uL (1.0-4.8); LYMPH % 26 % (24-48); MEAN CORPUSCULAR HEMOGLOBIN 31 pg (25-35); MEAN CORPUSCULAR HGB CONC 33 g/dL (31-37); MEAN CORPUSCULAR VOLUME 92 fL (79-100); MONO # 0.7 x10^3/uL (0.0-1.1); MONO % 8 % (0-9); NEUT % 63 % (31-73); PLATELET COUNT 292 x10^3/uL (140-400); RED BLOOD COUNT 4.99 x10^6/uL (3.50-5.40); RED CELL DISTRIBUTION WIDTH 15.6 % (11.5-14.5)
[2021-06-14 06:29] LABS: CREATININE 0.7 mg/dL (0.6-1.0); GFR 81.8; POTASSIUM 3.9 mmol/L (3.5-5.1)
--- NOTE | 2021-06-14 06:29 | EKG ---
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
[2021-06-14] MEDS ORDERED: IPRATRPIUM/ALBUTEROL 0.5/2.5MG 3 ML NEBU. NEB ONE (06:30)
[2021-06-14 06:35] LABS: ALBUMIN 3.4 g/dL (3.4-5.0); MAGNESIUM 2.4 mg/dL (1.8-2.4); TOTAL BILIRUBIN 0.4 mg/dL (0.2-1.0); TOTAL PROTEIN 6.8 g/dL (6.4-8.2)
--- NOTE | 2021-06-14 07:15 | RAD ---
EXAM: CT Chest without IV contrast CLINICAL HISTORY: Shortness of breath COMPARISON: None. TECHNIQUE: CT of the chest without intravenous contrast. Axial, coronal and sagittal reformatted imag es were generated. ---PQRS compliance statement - One or more of the following individualized dose reduction techniques were utilized for this study: 1. Automated exposure control 2. Adjustment of the mA and/or kV according to patient size 3. Use of iterative reconstruction technique--- FINDINGS: Lack of intravenous contrast limits evaluation of solid organs, vasculature, and lymph nodes. Chest: No axillary lymphadenopathy. No mediastinal or hilar lymphadenopathy within the constraints of this n oncontrast examination. Aortic calcifications are seen. Trace pericardial fluid is likely physiologic . The heart is not enlarged. No pleural effusion. No pneumothorax. A 5 mm left lower lobe nodule (ser ies 2 image 42) is seen. 7 mm left upper lobe lung nodule (series 2 image 27). A 7 x 8 mm right middl e lobe lung nodule (series 2 image 57) is seen. Additional less than 6 mm right lung nodules are also seen bilaterally. Patchy airspace opacities, solid and groundglass, medial right lower lobe, left lo wer lobe and lingula likely atelectasis or developing consolidative process. Visualized Upper abdomen: Multiple renal cysts seen. Moderate colonic stool content is seen is partia lly profiled. Bones: No aggressive osseous lesion is seen. IMPRESSION: 1. Patchy groundglass and solid airspace opacities in the medial right lower lobe, left lower lobe a nd lingula may represent developing consolidative process. Atelectasis can also have this appearance. 2. Bilateral lung nodules measuring up to 7 mm. Per Fleischner Society guidelines for incidentally f ound multiple solid nodules measuring 6-8 mm, initial CT follow-up is recommended in 3-6 months. Aldo tional follow-up can be considered in 18-24 month based on risk factors. Electronically signed by: Lawrence Faulkner MD (06/14/2021 7:13 AM) [facility]
[2021-06-14] MEDS ORDERED: AMOX1TAB61 PO (07:34)
== END 2021-06-14 07:43 | disposition home or self-care (01) ==
LOC: ER 05:36
DX: J18.9 Pneumonia, unspecified organism (principal); E11.9 Type 2 diabetes mellitus without complications; Z90.49 Acquired absence of other specified parts of digestive tract
CPT/HCPCS: 36415; 71250; 80053; 83735; 84484; 85025; 93005; 94640; 96374; 99285; J3010